=== PATIENT | female | born 1960 | race Hispanic/Latino ===

== ENCOUNTER 2017-07-29 09:40 | Outpatient (CLI) | payer OTHER ==
--- NOTE | 2017-07-29 13:12 | MMO ---
BILATERAL SCREENING MAMMOGRAM: Date: 07/29/17 HISTORY: Screening. COMPARISON: Mammograms from 2016, 2015, 2013, 2012, and 2010. TECHNIQUE: Bilateral screening CC and MLO mammograms. This patient's mammogram was interpreted with the assistance of computer-aided detection. FINDINGS: Benign calcifications in both breasts. The breasts are heterogeneously dense, which may obscure smal l masses. No suspicious mass, microcalcifications, or architectural distortion. IMPRESSION: BIRADS 2: Benign Finding(s) Continued annual mammographic screening is recommended. POS: ELI
--- NOTE | 2017-07-29 14:31 | BD ---
DEXA BONE DENSITY SCAN: Date: 07-29-17 Comparison: 12-06-10 History: 57-year-old post-menopausal female undergoing screening for osteoporosis. Lumbar Spine: BMD (g/cm2) L1 0.918 T-Score: -0.7 Previous: -1.1 L2 0.937 T-Score: -0.8 Previous: -1.1 L3 0.979 T-Score: -1.0 Previous: -0.1 L4 0.987 T-Score: -0.7 Previous: -0.6 L1-L4 0.957 T-Score: -0.8 Previous: -0.7 Femoral Neck: 0.705 T-Score: -1.3 Previous: -1.9 Total Femur: 0.893 T-Score: -0.4 Previous: -0.9 The FRAX-WHO fracture assessment shows a 10-year fracture risk of 3.3% for osteoporotic fracture and 0.2% for hip fracture in an untreated patient. Impression: Femoral neck osteopenia, correlating with a moderately increased risk for fracture. POS: ELI
== END 2017-07-29 09:41 | disposition home or self-care (01) ==
LOC: MAMMO 09:40
PROVIDERS: ATTEND Family Medicine
DX: Z12.31 Encounter for screening mammogram for malignant neoplasm of breast (principal); Z13.820 Encounter for screening for osteoporosis; M85.88 Other specified disorders of bone density and structure, other site
CPT/HCPCS: 77067; 77080; G0202

== ENCOUNTER 2018-09-01 10:03 | Outpatient (CLI) | payer OTHER | END 2018-09-01 10:04 | disposition home or self-care (01) | LOC: BICMAMMO 10:03 | PROVIDERS: ATTEND Family Medicine | DX: Z12.31 Encounter for screening mammogram for malignant neoplasm of breast (principal) | CPT/HCPCS: 77063; 77067 ==

== ENCOUNTER 2019-10-27 08:57 | Outpatient (CLI) | payer OTHER ==
--- NOTE | 2019-10-27 09:32 | MMO ---
Bilateral MAMMO Bilat Screen [facility]. CLINICAL HISTORY: Patient is 59 years old and is seen for screening. The patient has no family history of breast cancer. The patient has no personal history of cancer. VIEWS: The views performed were: bilateral craniocaudal with tomosynthesis and bilateral mediolateral oblique with tomosynthesis. FILMS COMPARED: The present examination has been compared to prior imaging studies performed at [facility] on 05/18/2015, 05/22/2016, 07/29/2017 and 09/01/2018. This study has been interpreted with the assistance of computer-aided detection. MAMMOGRAM FINDINGS: The breasts are heterogeneously dense, which could obscure a lesion on mammography. There are stable benign appearing calcifications seen in both breasts. There are no suspicious masses, suspicious calcifications, or new areas of architectural distortion. IMPRESSION: THERE IS NO MAMMOGRAPHIC EVIDENCE OF MALIGNANCY. A ROUTINE FOLLOW-UP MAMMOGRAM IN 1 YEAR IS RECOMMENDED. THE RESULTS OF THIS EXAM WERE SENT TO THE PATIENT. ACR BI-RADS Category 2 - Benign finding MAMMOGRAPHY NOTE: 1. A negative mammogram report should not delay a biopsy if a dominant of clinically suspicious mass is present. 2. Approximately 10% to 15% of breast cancers are not detected by mammography. 3. Adenosis and dense breasts may obscure an underlying neoplasm. Reported by: FUAD JON MD Electonically Signed: [id number]
== END 2019-10-27 08:58 | disposition home or self-care (01) ==
LOC: BICMAMMO 08:57
PROVIDERS: ATTEND Obstetrics & Gynecology
DX: Z12.31 Encounter for screening mammogram for malignant neoplasm of breast (principal)
CPT/HCPCS: 77063; 77067

== ENCOUNTER 2021-01-02 08:08 | Outpatient (CLI) | payer OTHER | END 2021-01-02 08:09 | disposition home or self-care (01) | LOC: BICMAMMO 08:08 | PROVIDERS: ATTEND Family Medicine | DX: Z12.31 Encounter for screening mammogram for malignant neoplasm of breast (principal) | CPT/HCPCS: 77063; 77067 ==

== ENCOUNTER 2023-01-22 11:56 | Outpatient (CLI) | payer BC | END 2023-01-22 11:57 | disposition home or self-care (01) | LOC: BICMAMMO 11:56 | PROVIDERS: ATTEND Family Medicine | DX: Z12.31 Encounter for screening mammogram for malignant neoplasm of breast (principal) | CPT/HCPCS: 77063; 77067 ==

== ENCOUNTER 2023-07-23 17:00 | Outpatient (CLI) | payer BC | END 2023-07-23 17:01 | disposition home or self-care (01) | LOC: SLEEPLAB 17:00 | PROVIDERS: ATTEND Family Medicine | DX: G47.33 Obstructive sleep apnea (adult) (pediatric) (principal); E66.9 Obesity, unspecified; R06.83 Snoring | CPT/HCPCS: 95811 ==